=== PATIENT | male | born 1940 | race Caucasian/White ===

== ENCOUNTER → 2020-01-19 | Outpatient (CLI) | payer OTHER ==
[~2020-01-19] MED LIST: BENADRYL ALLERG25 MG PO; CARVEDILOL6.25 MG PO; CATAPRES OR; DIOVAN160 MG PO; EXFORGEHCT; HYDROCHLOROTHIA25 M1 PO; HYTRIN 1 MG CAP1 MG PO; PREDNISONE50 MG PO
== END ==
LOC: M.RAD 11:40
PROVIDERS: ATTEND Registered Nurse
DX: J84.9 Interstitial pulmonary disease, unspecified (principal); R05 Cough; R06.02 Shortness of breath

== ENCOUNTER → 2020-03-03 | Outpatient (CLI) | payer OTHER ==
--- NOTE | 2020-03-13 22:09 | PF ---
[address] [address] PULMONARY FUNCTION REPORT Name: CHEYENNE YOUNGER Room: [facility]#: [id number] Admission: 03/03/20 Attend Phys: CHAYO Hilton Discharge: Date of : 44 Report #: [id number] THIS REPORT FOR: cc: Samuel Carver MD, Bruce D. MD ~ Juan Jose Erickson MD DATE OF SERVICE: 03/03/2020 The FEV1/FVC ratio is decreased to 52% with an FVC decreased to 72% and FEV1 decreased to 52% as well. The EEB31-10 is decreased to 29%. After the administration of a bronchodilator, there is no significant change in any of these values. The patient's post-bronchodilator FEV1 is noted to be 1.51 liters. The total lung capacity is decreased to 74% with a residual volume decreased to 51%. The DLCO as adjusted for hemoglobin is decreased to 59%. The flow volume loop is concave upwards. IMPRESSION: 1. Moderate obstruction without evidence of reversibility. 2. Mild restriction. 3. The DLCO as adjusted for hemoglobin decreased to 59%. <ELECTRONICALLY SIGNED> By: Juan Jose Erickson MD 03/13/20 2209 [id number] Erickson MD /nt
== END ==
LOC: M.PUL 13:32
PROVIDERS: ATTEND Nurse Practitioner Family
DX: J98.4 Other disorders of lung (principal); R06.02 Shortness of breath; Z87.891 Personal history of nicotine dependence

== ENCOUNTER → 2020-06-09 | Outpatient (CLI) | payer OTHER | LOC: M.LAB 12:17 → M.CT 13:30 | PROVIDERS: ATTEND Registered Nurse | DX: I65.23 Occlusion and stenosis of bilateral carotid arteries (principal); I10 Essential (primary) hypertension; I25.10 Atherosclerotic heart disease of native coronary artery without angina pectoris ==